=== PATIENT | female | born 1935 | race Caucasian/White ===

== ENCOUNTER → 2022-05-01 | Emergency (ER) | payer OTHER ==
[~2022-05-01] VITALS: Ht 165.1 cm; Wt 99.8 kg
[~2022-05-01] MED LIST: LIDOCAINE VISCOUS 2%, 15 ML UDC MM ONE; OXYM15MI9 NS; OXYMETAZOLINE HCL 0.05% NASAL SPRAY NS PRN; TRANEXAMIC ACID 1,000 MG/10 ML VIAL IV ONE
[2022-05-01 18:56] VITALS: BP_SYST 164
--- NOTE | 2022-05-01 19:19 | NUR ---
SUBMITTED ORDERS FOR PT
--- NOTE | 2022-05-01 19:50 | NUR ---
PT PRESENTED TO THE ER WITH NOSE BLEED BROUGHT IN BY HER SON. PT DENIES HEAD ACHE, SHORTNESS OF BREATH, IS AOX4. PT AMBULATES BASELINE WITH CANE, CANE AT HER BEDSIDE. VS ARE WITHIN NORMAL LIMITS NO TEMPERATURE AND PT DENIES ANY TYPE OF TRAUMA. PT IN BED, WITH BED LOWERED AND LOCKED AND RAIL UP. WILL CONTINUE TO MONITOR
[2022-05-01 20:46] VITALS: BP_SYST 147
--- NOTE | 2022-05-02 05:07 | NUR ---
Patient given written and verbal discharge instructions and verbalizes understanding. ER DR FLORINDA LUDWIG discussed with patient the results and treatment provided. Patient in stable condition. ID arm band removed. Opportunity for questions provided and answered. Medication side effect fact sheet provided.
== END | disposition home or self-care (01) ==
LOC: SED 18:48
DX: R58 Hemorrhage, not elsewhere classified (principal); I10 Essential (primary) hypertension; Z79.899 Other long term (current) drug therapy
CPT/HCPCS: 99281; J2001; J3490; 99282

== ENCOUNTER 2023-01-18 09:54 | Inpatient (IN) | payer OTHER ==
[~2023-01-18] VITALS: Ht 162.6 cm; Wt 91.8 kg
[~2023-01-18 09:54] MED LIST changes: -LIDOCAINE VISCOUS 2%, 15 ML UDC MM ONE; -OXYMETAZOLINE HCL 0.05% NASAL SPRAY NS PRN; -TRANEXAMIC ACID 1,000 MG/10 ML VIAL IV ONE
[2023-01-18 09:57] VITALS: BP_SYST 109
--- NOTE | 2023-01-18 09:57 | NUR ---
Placed in room 01 . Placed on equipment monitor phototypesetting, blood pressure machine and pulse oximeter. To gown for exam. Side rails up. Report given to LUZ MARIA MOREAU.
--- NOTE | 2023-01-18 09:59 | NUR ---
PT BIBA AWAKE AND CONFUSED AOX1. [facility] PT HAD C/O WEAKNESS AND HEAD ACHE. PARAMEDICS ON SCENE STATED HER BP WAS 55/30, BUT IT WAS RECHECKED MANUALLY AND IT WAS 75/56. PARAMEDICS PLACED AN 18G IV ON HER RFA. PARAMEDICS STATED THEY GAVE HER 0.1 MG OF EPI PRIOR TO ARRIVAL. UPON ARRIVAL HER B/P WAS 144/ 45. NO SOB OR DISTRESS NOTED.
--- NOTE | 2023-01-18 10:05 | NUR ---
MD DR SHAH AT BEDSIDE
--- NOTE | 2023-01-18 10:17 | NUR ---
COVID SWAB COLLECTED AND SENT TO LAB.
[2023-01-18] MEDS ORDERED: MELO10CA2 PO (10:34)
[2023-01-18] MEDS ORDERED: METO-544 PO (10:34)
[2023-01-18] MEDS ORDERED: PRED5TAB PO (10:34)
[2023-01-18] MEDS ORDERED: ACET-2634 PO (10:34)
[2023-01-18] MEDS ORDERED: LISI20TA30 PO (10:34)
[2023-01-18] MEDS ORDERED: HYDR12.55 PO (10:34)
[2023-01-18] MEDS ORDERED: LEVO137T2 PO (10:34)
[2023-01-18] MEDS ORDERED: VITD2000 PO (10:34)
[2023-01-18] MEDS ORDERED: ATOR20TA64 PO (10:34)
--- NOTE | 2023-01-18 10:34 | NUR ---
Medication reconciliation completed with information provided by [facility]. Any prior medication reconciliation on file was reviewed and corrected.
[2023-01-18 10:41] LABS: BASOPHILS # (AUTO) 0.1 K/uL (0.0-0.2); BASOPHILS % (AUTO) 1.4 % (0.0-2.0); EOSINOPHILS # (AUTO) 0.2 K/uL (0.0-0.4); EOSINOPHILS % (AUTO) 2.8 % (0.0-4.0); HEMATOCRIT 33.1 % (36-48); HEMOGLOBIN 10.7 g/dL (12.0-16.0); LYMPHOCYTES # (AUTO) 2.2 K/uL (1.0-5.5); LYMPHOCYTES % (AUTO) 32.2 % (20.5-51.5); MEAN CORPUSCULAR HEMOGLOBIN 28 pg (27-31); MEAN CORPUSCULAR HGB CONC 32 % (32-36); MEAN CORPUSCULAR VOLUME 88 fL (79.0-98.0); MONOCYTES # (AUTO) 0.6 K/uL (0.0-1.0); MONOCYTES % (AUTO) 8.9 % (1.7-9.3); NEUTROPHILS # (AUTO) 3.7 K/uL (1.8-7.7); NEUTROPHILS % (AUTO) 54.7 % (40.0-70.0); PLATELET COUNT (AUTO) 288 K/uL (130-430); RED BLOOD CELL COUNT(AUTO) 3.78 MIL/uL (4.2-6.2); RED CELL DISTRIBUTION WIDTH 14.6 % (9.0-15.0); WHITE BLOOD COUNT (AUTO) 6.8 K/uL (4.8-10.8)
[2023-01-18 10:53] LABS: ANION GAP 7 (5-15); CALCIUM 8.9 mg/dL (8.4-11.0); CHLORIDE 105 mmol/L (98-107); CREATININE 1.22 mg/dL (0.55-1.30); GLUCOSE 172 mg/dL (70-99); UREA NITROGEN, BLOOD 27 mg/dL (8-21)
[2023-01-18 10:57] LABS: INR 1.1 (0.8-1.2); PROTHROMBIN TIME 11.4 SECS (9.5-12.5)
[2023-01-18 11:01] LABS: ALANINE AMINOTRANSFERASE 27 U/L (12-78); ALBUMIN 3.1 g/dL (3.4-4.8); ASPARTATE AMINOTRANSFERASE 24 U/L (10-37); TOTAL BILIRUBIN 0.5 mg/dL (0.0-1.0)
[2023-01-18] MEDS ORDERED: NACL 0.9% 1,000 ML IV ONE ×2 (11:30→14:45)
[2023-01-18 12:48] LABS: BILIRUBIN,URINE NEGATIVE (NEGATIVE); BLOOD, URINE NEGATIVE (NEGATIVE); CLARITY/URINE SL CLOUDY (CLEAR); COLOR,URINE YELLOW (YELLOW); GLUCOSE,URINE NEGATIVE (NEGATIVE); KETONES,URINE NEGATIVE (NEGATIVE); LEUKOCYTE ESTERASE ,URINE 3+ (NEGATIVE); NITRITE, URINE NEGATIVE (NEGATIVE); PROTEIN URINE 1+ (NEGATIVE); UROBILINOGEN,URINE 0.2 (0.2-1.0)
[2023-01-18 13:04] LABS: RBC,URINE 0-3 /HPF (0-3); WBC,URINE 20-50 /HPF (0-3)
[2023-01-18 13:05] LABS: BACTERIA,URINE MODERATE /HPF (None Seen); HYALINE CASTS, URINE 0-10 /LPF (None Seen); URINE AMORPHOUS URATE 1+ /HPF (None Seen)
[2023-01-18] MEDS ORDERED: cefTRIAXone 1 GM VIAL ONE (14:43)
[2023-01-18] MEDS ORDERED: cefTRIAXone 1 GM in D5W 50 ML IV ONE (14:45)
--- NOTE | 2023-01-18 14:53 | NUR ---
Admit bed requested Patient will be admitted to care of . Admitted to Tele unit. Diagnosis Palpitations and dehydration Inpatient (Yes or No) yes Observation (Yes or No) no Orientation concerns or request close to nursing station (Yes or No) no Covid Status negative On vent or bipap no Isolation requirements no Needs a sitter no From Home (Yes or if No enter name of facility) [facility] Requires Dialysis (Yes or No) no Med Rec Completed (Yes of No) yes per charge nurse.
--- NOTE | 2023-01-18 19:31 | NUR ---
REPORT GIVEN TO EUGENE LOERA TO RESUME CARE. PT STABLE.
--- NOTE | 2023-01-18 21:17 | NUR ---
Patient will be admitted to care of . Admitted to TELE] unit. Will go to room 121B. Belongings list completed. Complete and up to date summary report printed. SBAR report to be given at bedside with LUZ MARIA Sultana .opportunity for questions.
[2023-01-18] MEDS ORDERED: PANTOPRAZOLE SODIUM 40 MG/VIAL (PROTONIX) IVP ONE (22:30)
[2023-01-18] MEDS ORDERED: ACETAMINOPHEN 325 MG TABLET PO PRN (22:30)
[2023-01-18] MEDS ORDERED: ONDANSETRON HCL 4 MG/2 ML VIAL IVP PRN (22:30)
[2023-01-18] MEDS ORDERED: NACL 0.9% 1,000 ML IV SCH (22:30)
[2023-01-18] MEDS ORDERED: ACETAMINOPHEN 500 MG TABLET PO PRN (22:30)
[2023-01-18 22:45] VITALS: BP_SYST 111
--- NOTE | 2023-01-18 23:23 | NUR ---
CONSULTATION CALLED FOR DR STERLING FOR CONSULT OF HYPOTENSION AND BRADYCARDI ORDER BY DR MUSE SPOKE WITH ELLIE
[2023-01-19] VITALS (7 sets, daily range): BP systolic 115–175
--- NOTE | 2023-01-19 01:00 | NUR ---
RECEIVED PT FROM ED, NO DISTRESS NOTED, DENIES PAIN. AAOX2, PT WITH EPISODE OF CONFUSION. IV SITE TO LT HAND SITE CDI. BLANCHABLE REDNESS TO SACRUM. NO SKIN INJURY NOTED. CALL LIGHT WITHIN REACH, BED IN LOW POSITION, BED ALARM ON.
--- NOTE | 2023-01-19 02:38 | NUR ---
CONSULTATION TEXTED FOR VIKY BLANCHARD FOR CONSULT OF ALOC ORDER BY DR. MUSE CONSULT TEST TO [phone]
--- NOTE | 2023-01-19 07:57 | NUR ---
Report received from mini shifter RN for continuity of care. Patient in stable condition. No active distress noted. Vitals stable. Open to eating breakfast.
[2023-01-19] MEDS: ATORVASTATIN 20 MG TABLET PO SCH (08:12)
[2023-01-19] MEDS: predniSONE 5 MG TABLET PO SCH (08:12)
[2023-01-19] MEDS: CHOLECALCIFEROL (VITAMIN D3) 2,000 UNIT TABLET PO SCH (08:12)
[2023-01-19] MEDS: MELOXICAM 7.5 MG TABLET PO SCH (08:12)
[2023-01-19] MEDS: LEVOTHYROXINE SODIUM 0.137 MG TABLET PO SCH (08:13)
[2023-01-19] MEDS: PANTOPRAZOLE SODIUM 40 MG/VIAL (PROTONIX) IVP SCH ×2 (08:13→23:02)
[2023-01-19 10:14] LABS: BASOPHILS # (AUTO) 0.1 K/uL (0.0-0.2); BASOPHILS % (AUTO) 0.8 % (0.0-2.0); EOSINOPHILS # (AUTO) 0.2 K/uL (0.0-0.4); HEMATOCRIT 32.7 % (36-48); HEMOGLOBIN 10.6 g/dL (12.0-16.0); LYMPHOCYTES # (AUTO) 1.7 K/uL (1.0-5.5); LYMPHOCYTES % (AUTO) 23.2 % (20.5-51.5); MEAN CORPUSCULAR HEMOGLOBIN 29 pg (27-31); MEAN CORPUSCULAR HGB CONC 33 % (32-36); MEAN CORPUSCULAR VOLUME 87 fL (79.0-98.0); MONOCYTES # (AUTO) 0.6 K/uL (0.0-1.0); MONOCYTES % (AUTO) 7.7 % (1.7-9.3); NEUTROPHILS # (AUTO) 4.9 K/uL (1.8-7.7); NEUTROPHILS % (AUTO) 65.3 % (40.0-70.0); PLATELET COUNT (AUTO) 266 K/uL (130-430); RED BLOOD CELL COUNT(AUTO) 3.74 MIL/uL (4.2-6.2); RED CELL DISTRIBUTION WIDTH 14.9 % (9.0-15.0); WHITE BLOOD COUNT (AUTO) 7.5 K/uL (4.8-10.8)
[2023-01-19 10:40] LABS: ALANINE AMINOTRANSFERASE 24 U/L (12-78); ALBUMIN 2.6 g/dL (3.4-4.8); ANION GAP 8 (5-15); ASPARTATE AMINOTRANSFERASE 24 U/L (10-37); CALCIUM 8.4 mg/dL (8.4-11.0); CHLORIDE 105 mmol/L (98-107); CREATININE 0.94 mg/dL (0.55-1.30); GLUCOSE 101 mg/dL (70-99); THYROID STIMULATING HORMONE 4.51 uIu/mL (0.36-3.74); TOTAL BILIRUBIN 0.5 mg/dL (0.0-1.0); UREA NITROGEN, BLOOD 22 mg/dL (8-21)
[2023-01-19 18:39] LABS: TOTAL IRON BIND. CAPACITY 327 ug/dL (250-450)
[2023-01-19 18:47] LABS: CHOLESTEROL 129 mg/dL (<200); TRIGLYCERIDES 108 mg/dL (30-150)
[2023-01-19 18:48] LABS: HDL CHOLESTEROL 53 mg/dL (>55)
--- NOTE | 2023-01-19 20:00 | NUR ---
OPENING Patient resting in bed, unlabored breathing on room air. No distress noted. Safety precautions in place.
[2023-01-19] MEDS: LEVOFLOXACIN 250 MG/D5W 100 ML IV SCH ×2 (23:02→23:16)
--- NOTE | 2023-01-19 23:44 | NUR ---
BP 175/66, HR 81. Informed Dr. Flaherty. Received order for 10mg lisinopril x1 now.
[2023-01-19] MEDS ORDERED: LISINOPRIL 10 MG TABLET (PRINIVIL) PO ONE (23:45)
--- NOTE | 2023-01-20 00:15 | NUR ---
ROUNDS/MEDICATION Lisinopril administered as ordered. Dr. Flaherty stated to "let her sleep" after administration. No complaint of pain or sign of distress noted. Patient used bedpan but is also incontinent of urine at times. Gown and linens changed.
[2023-01-20] MEDS: LEVOTHYROXINE SODIUM 0.137 MG TABLET PO SCH (06:07)
--- NOTE | 2023-01-20 07:40 | NUR ---
CLOSING Patient resting in bed, no distress noted. Incontinent of urine. Gown and linens changed. IV to left forearm was leaking/painful and was removed. Attempts at IV access unsuccessful. Endorsed to oncoming nurse.
[2023-01-20 08:32] VITALS: BP_SYST 163
[2023-01-20] MEDS ORDERED: cloNIDine HCL 0.2 MG TABLET PO PRN (08:45)
[2023-01-20] MEDS: PANTOPRAZOLE SODIUM 40 MG/VIAL (PROTONIX) IVP SCH (09:00)
[2023-01-20] MEDS ORDERED: cloNIDine HCL 0.1 MG TABLET PO PRN (09:00)
[2023-01-20] MEDS: MELOXICAM 7.5 MG TABLET PO SCH (09:25)
[2023-01-20] MEDS: predniSONE 5 MG TABLET PO SCH (09:25)
[2023-01-20] MEDS: CHOLECALCIFEROL (VITAMIN D3) 2,000 UNIT TABLET PO SCH (09:25)
[2023-01-20] MEDS: ATORVASTATIN 20 MG TABLET PO SCH (09:25)
[2023-01-20 10:07] LABS: FOLATE (FOLIC ACID) 8.9 ng/mL (>3.0)
[2023-01-20 11:36] VITALS: BP_SYST 139
[2023-01-20 12:37] VITALS: BP_SYST 153
[2023-01-20] MEDS ORDERED: lisinopriL 20 MG TABLET PO ONE (14:45)
[2023-01-20] MEDS ORDERED: CEPH-548 PO (14:48)
[2023-01-20] MEDS ORDERED: LACT1CAP89 PO (14:49)
[2023-01-20] MEDS ORDERED: CYAN100010 PO (14:57)
[2023-01-20 16:23] VITALS: BP_SYST 152
[2023-01-20 16:24] VITALS: BP_SYST 152
== END 2023-01-20 16:45 | disposition home or self-care (01) | DRG 640 ==
LOC: SED 09:54 → STU 15:17
PROVIDERS: ADMIT Internal Medicine; ATTEND Internal Medicine
DX: E86.0 Dehydration (principal); R57.1 Hypovolemic shock; N39.0 Urinary tract infection, site not specified; R00.1 Bradycardia, unspecified; I10 Essential (primary) hypertension; E03.9 Hypothyroidism, unspecified; E78.5 Hyperlipidemia, unspecified; E66.9 Obesity, unspecified; Z66 Do not resuscitate; T50.2X5A Adverse effect of carbonic-anhydrase inhibitors, benzothiadiazides and other diuretics, initial encounter; D64.9 Anemia, unspecified; Z20.822 Contact with and (suspected) exposure to COVID-19; Z79.1 Long term (current) use of non-steroidal anti-inflammatories (NSAID); Z79.899 Other long term (current) drug therapy; Z90.49 Acquired absence of other specified parts of digestive tract; Y92.89 Other specified places as the place of occurrence of the external cause; Z68.34 Body mass index [BMI] 34.0-34.9, adult
CPT/HCPCS: 36415; 71045; 80053; 80061; 81000; 82550; 82607; 82746; 83540; 83550; 83605; 83880; 84439; 84443; 84484; 85025; 85384; 85610-TC; 85730-TC; 86886; 86900; 86901; 87040; 87081; 87086; 93005; 93306; 96361; 96365; 97116-GP; 97163-GP; 99291; C9113; G0378; J0696; J1956; J7512

== ENCOUNTER 2023-12-28 16:24 | Emergency (ER) | payer BC, OTHER ==
[~2023-12-28] VITALS: Ht 162.6 cm; Wt 99.8 kg
[2023-12-28 16:24] VITALS: BP_SYST 142; PULSE 86; RESP 16; TEMP 98.2; O2SAT 100
[~2023-12-28 16:24] MED LIST changes: +ACET-2634 PO; +ATOR20TA64 PO; +CEPH-548 PO; +CYAN100010 PO; +HYDR12.55 PO; +LACT1CAP89 PO; +LEVO137T2 PO; +LISI20TA30 PO; +MELO10CA2 PO; +PRED5TAB PO; +VITD2000 PO
[2023-12-28 17:08] LABS: BILIRUBIN,URINE NEGATIVE (NEGATIVE); BLOOD, URINE NEGATIVE (NEGATIVE); CLARITY/URINE CLEAR (CLEAR); COLOR,URINE YELLOW (YELLOW); GLUCOSE,URINE NEGATIVE (NEGATIVE); KETONES,URINE TRACE (NEGATIVE); LEUKOCYTE ESTERASE ,URINE NEGATIVE (NEGATIVE); NITRITE, URINE NEGATIVE (NEGATIVE); PROTEIN URINE NEGATIVE (NEGATIVE); UROBILINOGEN,URINE 0.2 (0.2-1.0)
[2023-12-28 17:24] LABS: BASOPHILS # (AUTO) 0.1 K/uL (0.0-0.2); BASOPHILS % (AUTO) 0.7 % (0.0-2.0); EOSINOPHILS % (AUTO) 0.4 % (0.0-4.0); HEMATOCRIT 35.9 % (36-48); HEMOGLOBIN 12.5 g/dL (12.0-16.0); LYMPHOCYTES # (AUTO) 2.5 K/uL (1.0-5.5); LYMPHOCYTES % (AUTO) 23.7 % (20.5-51.5); MEAN CORPUSCULAR HEMOGLOBIN 31 pg (27-31); MEAN CORPUSCULAR HGB CONC 35 % (32-36); MEAN CORPUSCULAR VOLUME 89 fL (79.0-98.0); MONOCYTES # (AUTO) 0.7 K/uL (0.0-1.0); MONOCYTES % (AUTO) 6.9 % (1.7-9.3); NEUTROPHILS # (AUTO) 7.2 K/uL (1.8-7.7); NEUTROPHILS % (AUTO) 68.3 % (40.0-70.0); PLATELET COUNT (AUTO) 358 K/uL (130-430); RED BLOOD CELL COUNT(AUTO) 4.04 MIL/uL (4.2-6.2); RED CELL DISTRIBUTION WIDTH 13.9 % (9.0-15.0); WHITE BLOOD COUNT (AUTO) 10.6 K/uL (4.8-10.8)
[2023-12-28 18:00] LABS: ALANINE AMINOTRANSFERASE 22 U/L (12-78); ALBUMIN 3.4 g/dL (3.4-4.8); ANION GAP 10 (5-15); ASPARTATE AMINOTRANSFERASE 23 U/L (10-37); CALCIUM 8.8 mg/dL (8.4-11.0); CARBON DIOXIDE 27 mmol/L (23-29); CHLORIDE 105 mmol/L (98-107); CREATININE 1.02 mg/dL (0.55-1.30); GLUCOSE 97 mg/dL (74-106); LIPASE 22 U/L (16-77); SODIUM SERUM 142 mmol/L (136-145); TOTAL BILIRUBIN 0.4 mg/dL (0.0-1.0); UREA NITROGEN, BLOOD 25 mg/dL (8-21)
[2023-12-28] MEDS ORDERED: TRAM50TA2 PO (18:43)
[2023-12-28 19:46] VITALS: BP_SYST 142; PULSE 64; RESP 16; TEMP 98.4; O2SAT 97
== END 2023-12-28 19:46 | disposition home or self-care (01) ==
LOC: SED 16:24
DX: M43.17 Spondylolisthesis, lumbosacral region (principal); G89.29 Other chronic pain; M47.816 Spondylosis without myelopathy or radiculopathy, lumbar region; M54.50 Low back pain, unspecified; I10 Essential (primary) hypertension; E78.5 Hyperlipidemia, unspecified; E03.9 Hypothyroidism, unspecified; Z88.8 Allergy status to other drugs, medicaments and biological substances; Z79.899 Other long term (current) drug therapy; Z90.89 Acquired absence of other organs
CPT/HCPCS: 36415; 72100; 80053; 81001; 81003; 83690; 85025; 99284

== ENCOUNTER 2024-01-23 10:50 | Emergency (ER) | payer BC ==
[~2024-01-23] VITALS: Ht 162.6 cm; Wt 52.2 kg
[~2024-01-23 10:50] MED LIST changes: +TRAM50TA2 PO
[2024-01-23 10:52] VITALS: BP_SYST 144; PULSE 76; RESP 18; TEMP 98.3; O2SAT 98
[2024-01-23 12:03] LABS: BASOPHILS # (AUTO) 0.1 K/uL (0.0-0.2); BASOPHILS % (AUTO) 0.8 % (0.0-2.0); EOSINOPHILS # (AUTO) 0.1 K/uL (0.0-0.4); EOSINOPHILS % (AUTO) 1.2 % (0.0-4.0); HEMATOCRIT 36.6 % (36-48); HEMOGLOBIN 12.2 g/dL (12.0-16.0); LYMPHOCYTES # (AUTO) 1.8 K/uL (1.0-5.5); MEAN CORPUSCULAR HEMOGLOBIN 30 pg (27-31); MEAN CORPUSCULAR HGB CONC 33 % (32-36); MEAN CORPUSCULAR VOLUME 91 fL (79.0-98.0); MONOCYTES # (AUTO) 0.6 K/uL (0.0-1.0); MONOCYTES % (AUTO) 8.3 % (1.7-9.3); NEUTROPHILS # (AUTO) 4.4 K/uL (1.8-7.7); NEUTROPHILS % (AUTO) 63.7 % (40.0-70.0); PLATELET COUNT (AUTO) 318 K/uL (130-430); RED BLOOD CELL COUNT(AUTO) 4.02 MIL/uL (4.2-6.2); RED CELL DISTRIBUTION WIDTH 14.4 % (9.0-15.0); WHITE BLOOD COUNT (AUTO) 6.8 K/uL (4.8-10.8)
[2024-01-23 12:31] LABS: ANION GAP 8 (5-15); CALCIUM 9.2 mg/dL (8.4-11.0); CARBON DIOXIDE 30 mmol/L (23-29); CHLORIDE 101 mmol/L (98-107); CREATININE 1.21 mg/dL (0.55-1.30); GLUCOSE 103 mg/dL (74-106); POTASSIUM 4.3 mmol/L (3.5-5.1); SODIUM SERUM 139 mmol/L (136-145); UREA NITROGEN, BLOOD 26 mg/dL (8-21)
[2024-01-23 13:46] LABS: BILIRUBIN,URINE NEGATIVE (NEGATIVE); BLOOD, URINE NEGATIVE (NEGATIVE); CLARITY/URINE CLEAR (CLEAR); COLOR,URINE YELLOW (YELLOW); GLUCOSE,URINE NEGATIVE (NEGATIVE); KETONES,URINE NEGATIVE (NEGATIVE); LEUKOCYTE ESTERASE ,URINE NEGATIVE (NEGATIVE); NITRITE, URINE NEGATIVE (NEGATIVE); PROTEIN URINE NEGATIVE (NEGATIVE); UROBILINOGEN,URINE 0.2 (0.2-1.0)
[2024-01-23 14:45] VITALS: BP_SYST 131; PULSE 66; RESP 19; TEMP 98.3; O2SAT 97
== END 2024-01-23 14:44 | disposition home or self-care (01) ==
LOC: SED 10:50
DX: R41.0 Disorientation, unspecified (principal); I10 Essential (primary) hypertension; Z88.1 Allergy status to other antibiotic agents; Z88.8 Allergy status to other drugs, medicaments and biological substances; Z86.59 Personal history of other mental and behavioral disorders; Z79.899 Other long term (current) drug therapy
CPT/HCPCS: 36415; 80048; 81001; 81003; 82948; 85025; 93005; 99284